=== PATIENT | male | born 1960 | race Caucasian/White ===

== ENCOUNTER → 2022-10-23 07:44 | Outpatient (REF) | payer OTHER, SELFPAY ==
--- NOTE | 2022-10-23 07:52 | CA_ITS ---
Acquisition Time: 2022-10-23 08:15:44 Total Exercise Time: 00:13:20 Test Indications: SYNCOPE Medications: SEE H Protocol: ABEL Max HR: 160 BPM 101% of Pred: 158 BPM Max BP: 172/070 mmHG Max Work Load: 15.9 METS Exercise stress test with exercise 13 min 20 sec of Abel protocol achieving 98% MPHR, without anginal symptoms, with isolated PACs and one 5 beat atrial tach in stage 2, with few isolated PVCs in stage 5, with 2 ventricular cuplets and one ventricular triplet at peak exercise, with normotensive response to exercise, with EKG changes meeting criteria for ischemia: horizontal ST depressions up to 2 mm in V3-V6 and borderline inferiorly which improve quickly in recovery. Smith treadmill score +3, Medium Risk. Test reviewed with Dr Khanna Call placed to PCP office with recommendations for stress echo, echocardiogram and Cardiology consult. He tells me he has Holter monitor scheduled for next week. Also states he has a history of having a false positive stress test in the past. Referred By: Nia Goodwin Overread By: TRACY LAYTON
== END ==
LOC: HO.CARD 07:44
PROVIDERS: PCP Family Medicine; Visit Provider Family Medicine
DX: R55 Syncope and collapse (principal)
CPT/HCPCS: 93017

== ENCOUNTER → 2022-10-29 12:47 | Outpatient (REF) | payer OTHER, SELFPAY ==
--- NOTE | 2022-10-29 12:52 | CA_ITS ---
Transthoracic Echocardiogram Patient (Last, First, Middle): Alvaro Sal, Gender: Male Date of : 1960 Age: 62 Procedure Date: 10/29/2022 Procedure Type: Transthoracic Echocardiogram Location: OP Height: 187.96 cm Weight: 95.26 kg BSA: 2.22 m2 Heart Rate: bpm BP: 130 / 75 mmHg Contract Technical Writer: TO Referring MD: Nia Goodwin MD Vice President Corporate Communications: Juaquin Lott MD Symptoms: SYNCOPE Study Quality: Adequate ECG Rhythm: Sinus Conclusions: - 1. Normal LV systolic function with normal diastolic filling pattern 2. Mildly dilated left atrium 3. Trivial aortic regurgitation 4. Upper limits of normal ascending aortic size 5. No gross pericardial effusion Findings Left Ventricle Normal left ventricular size, thickness, and systolic function. The visually estimated ejection fraction is between 60-65%. Diastolic function is normal for age. Peak GLS is -21.3%, within normal limits Right Ventricle Mildly increased right ventricular cavity size. There is normal right ventricular systolic function. Atria The left atrium is mildly dilated. There is no evidence of interatrial shunt. The right atrium is normal in size. Aortic Valve Normal aortic valve structure and function. There is no aortic valve stenosis. There is trace (trivial) aortic valve regurgitation. Mitral Valve Normal mitral valve structure and function. There is trace mitral valve regurgitation. There is no mitral valve stenosis. Pulmonic Valve The pulmonic valve is likely normal. There is trace pulmonic valve regurgitation. Tricuspid Valve Normal tricuspid valve structure. There is trace tricuspid valve regurgitation. The right ventricular systolic pressure is normal. The right ventricular systolic pressure is 30 mmHg. Normal right atrial pressure. There is no evidence of pulmonary hypertension. Great Vessels The pulmonary artery was not well visualized. Venous The inferior vena cava is normal in size and collapses greater than 50% with inspiration. Pericardium/Pleural There is no evidence of pericardial effusion. Prior Study Comparison No prior study available for comparison. Measurements 2D Linear Measurements IVSd: 2.10 0.6-0.9/0.6-1.0 cm LVIDd: 4.18 3.9-5.3/4.2-5.9 cm LVIDd Index: 1.88 2.4-3.2/2.2-3.1 cm/m2 LVIDs: 2.72 2.0-3.6 cm LVPWd: 1.24 0.7-1.1 cm LA Diam: 3.70 2.7-3.8/3.0-4.0 cm LAIDs Index: 1.67 1.5-2.3 cm/m2 LV Mass: 366.31 67-162/88-224 g LV Mass Index: 165.01 43-95/49-115 g/m2 LVOT Diam: 2.70 3.0+(-)1.3 cm 2D Systolic Function EF 4C: 65.40 >55% EF 2C: 63.50 >55% EF BiP: 63.90 >55% Mitral Valve MV Pk E: 0.59 MV PK A: 0.52 MV Decel Time: 273.00 E/A: 1.10 E'Lateral: 8.05 E'Medial: 6.42 E/E' Med: 9.10 E/E' Lat: 7.30 PHT: 80.00 MVA PHT: 2.75 Decel Bremer: 2.15 Aortic Valve AoV Pk Ace: 1.51 AoV Mn Ace: 1.02 AoV VTI: 0.32 AoV Pk Grad: 9.00 Aov Mn Grad: 5.00 NILO Cont.VTI: 4.77 LVOT LVOT Pk Ace: 1.16 LVOT Mn Ace: 0.73 LVOT VTI: 0.27 LVOT Pk Grad: 5.00 LVOT Mn Grad: 3.00 LVOT Diam: 2.70 LVOT Area: 5.73 Diastolic Function MV Pk E: 0.59 MV Pk A: 0.52 E/A: 1.10 E'Medial: 6.42 E/E' Med: 9.10 E' Laterial: 8.05 E/E' Lat: 7.30 Right Ventricle TAPSE (mm): 27.40 TVS' Ace: 18.00 Tricuspid Valve TR Pk Ace: 2.32 TR Pk Grad: 22.00 RA Press: 8.00 RVSP: 30.00 Great Vessels Aorta Sinus of Valsalva: 4.22 2.0-3.[address] Ridge: 3.17 1.7-3.4 cm Ao Asc: 3.60 2.1-3.4 cm Ao Arch: 3.20 Updated in Other Vendor System with Status of Final Juaquin Lott MD electronically signed on 10/29/2022 4:32:42 PM with status of Final
== END ==
LOC: HO.CARD 12:47
PROVIDERS: PCP Family Medicine; Visit Provider Family Medicine
DX: R55 Syncope and collapse (principal)
CPT/HCPCS: 93306; 93356

== ENCOUNTER → 2022-11-13 07:45 | Outpatient (REF) | payer OTHER, SELFPAY ==
--- NOTE | ~2022-11-13 | NM_ITS ---
Exercise Myocardial perfusion study Indication: Abnormal stress test evaluate for myocardial ischemia Technique: The patient was brought in for an exercise perfusion study on 11/13/2022. Patient performed exercise as per Toño protocol and was injected 30 mCi of sestamibi was given intravenously one target HR was achieved. Images were obtained using the SPECT gamma camera interlaced with the gating device. Images were obtained in supine position. Resting perfusion study was performed on 11/17/2022. Patient was administered 30 mCi of sestamibi intravenously at rest. Images were then obtained in supine position. Images obtained with and without CT attenuation. Total DLP 91 mGy-cm. Images were processed with the software and compared side to side in short axis, horizontal long axis and vertical long axis views. Findings: The stress perfusion study showed non attenuated images show some thinning of the basal septum of the LV myocardium. Remainder of the LV myocardium is normally perfused. Attenuation corrected images show normal uptake of segments of LV myocardium. The gated study shows low normal LV systolic function with calculated LVEF of 54%. LV cavity is mildly dilated in size. The gated study shows normal systolic wall thickening and contraction of all segments. There is no transient ischemic dilation. Resting study shows nontender images show some thinning of the basal septum of the LV myocardium. Gating at rest reveals normal systolic wall motion with ejection fraction at 53%. The findings are consistent with no reversible defect suggestive of ischemia. NM/NM avery perf SPECT rest & str Impression: 1. Normal myocardial perfusion 2. Gated LVEF is 54% 3. Transient ischemic dilatation not present Stress EKG is negative for ischemia
--- NOTE | 2022-11-13 07:48 | CA_ITS ---
Acquisition Time: 2022-11-13 08:39:08 Total Exercise Time: 00:12:30 Test Indications: R94.39 Medications: SEE H Protocol: ABEL Max HR: 141 BPM 89% of Pred: 158 BPM Max BP: 160/084 mmHG Max Work Load: 14.3 METS Exercise stress test exercise 12 min 30 sec of Abel protocol acheving 89% MPHR, with mild SOB, without chest discomfort, with isolated PVCs and PACs, with normotensive response to exercise, without EKG changes meeting criteria for ischemia. Nuclear images pending. Test reviewed with Dr. Lott Referred By: Bryant Henson Overread By: Sarah Ca
== END ==
LOC: HO.CARD 07:45
PROVIDERS: Visit Provider Family Medicine
DX: R94.39 Abnormal result of other cardiovascular function study (principal)
CPT/HCPCS: 78452; 93017; A9500

== ENCOUNTER → 2022-11-13 08:43 | Outpatient (BNV) | payer OTHER, SELFPAY | PROVIDERS: Visit Provider Internal Medicine Cardiovascular Disease | DX: R94.39 Abnormal result of other cardiovascular function study (principal); R06.02 Shortness of breath | CPT/HCPCS: 78452; 93016; 93018 ==